=== PATIENT | male | born 1960 | race Caucasian/White ===

== ENCOUNTER 2017-10-06 01:14 | Inpatient (IN) | payer OTHER ==
[~2017-10-06] VITALS: Ht 170.2 cm; Wt 74.8 kg
[~2017-10-06 01:14] MED LIST: ATORVASTATIN CA10 M1; AVAPRO300 M1 PO; HUMALOG100 UNIT/1; MULTIVITAMINS1 EAC9 PO; OXYCODONE HCL5 M1 PO; PROTONIX40 M3 PO; TRESIBA FL100 UNIT/1
--- NOTE | 2017-10-06 13:20 | RADIOLOGY REPORT ---
EXAMINATION: XR LUMBAR SPINE CLINICAL INFORMATION: L3-L4 fusion. COMPARISON: Lumbar spine films dated 07/22/2017. TECHNIQUE: Lateral views of the lumbar spine were performed, labeled image 1 and image 2. FINDINGS: On image 1, a surgical marker is seen projecting over the superior margin of the L4 spinous process at the level of the L3-L4 facet joint. On image 2, a surgical marker is seen projected over the L3-L4 facet joint with tip pointing towards the L3-L4 disc space. IMPRESSION: Localization of the L3-L4 level.
--- NOTE | 2017-10-06 14:46 | Operative Report ---
Operative/Inv Procedure Report Surgery Date: 10/06/17 Name of Procedure: L3/4 TLIF, placement of Doris intervertebral biomechanical device posterior lateral nonsegmental instrumentation using Doris Sirota screws L3 4 posterior lateral fusion using autograft and allograft right sided L3 4 discectomy left-sided L3 4 medial facetectomy foraminotomy Stealth navigation Right iliac crest bone marrow aspirate Pre-Operative Diagnosis: Spondylolisthesis. Herniated nucleus pulposis lateral recess stenosis Post-Operative Diagnosis: Same Estimated Blood Loss: 200 Surgeon/Non Clinical Advisor: Neal Henderson MD,Sandra Palm Anesthesia: general endotracheal tube Operative/Procedure Note Note: After the successful administration of general endotracheal anesthesia all lines tubes and monitors post anesthesia team the patient positioned prone on the Nimesh table pressure points padded we palpated the spinous process of L3 and L4 patient was prepped and draped using standard fashion 10 mL of lidocaine with epinephrine was infiltrated in subcutaneous tissues were 10 was used to incise the skin. Dissection was carried down to thoracolumbar fascia with Bovie cautery and a subperiosteal dissection was used to expose spinous process lamina of L3 and L4 care was taken not to denude to 2/3 joint, we identified the transverse processes of L3 and L4. We then for the pars reticularis at L3 placed a [place] lateral to the pars confirmed level with x-ray, which was confirmed we denuded 3/4 joint space. We then made cuts in the pars meticulous and the right-hand side at L3 and the descending facet of L3 was removed spinous process of L3 with a [place] rongeur saving all the bone for autograft use of bone scalpel to make cuts in the pars and medial facet, The Left-Hand Side at L3 Removing the Descending Facet of L3 We Then Removed Using Cement of L4 with a Combination of Kerrisons and Bone Scalpel. We identified the herniated nuclear pulposus caudally migrated from 34 disc space, medial to the pedicle of L4 underneath the traversing nerve root there was medialized admitted the disc space removed the disc piecemeal sent the specimen. We then used Kerrison punch to undercut the left-sided foramen and identifying the exiting traversing nerve roots and the left-hand side. After satisfied with the bony ligamentous decompression we entered the disc space with a #11 blade from annulotomy and a total discectomy at L3-L4 for a separate approach. Remove the bony cartilage endplates with glo rongeurs and using curettes. After successful and plate prep a 11 x 26 lordotic spacer was impacted into the disc space was prepacked morselized autograft. The autograft was soaked with bone marrow aspirate taken from the right iliac crest through separate stab incision. We then placed the spinous process the right-hand spinous process of L4 brought the O arm in an [employer] workstation plantar screw to points and trajectories. We used a high- speed drill to drill helicopter pilot holes the junction of pars reticularis transverse process and facet complex at L3 and L4 to deepen the navigated lanky probe Was 6.5 mm tap HAD sequential bone around the. We then placed 6 5 x 50 pedicle screws at L3 and L4 after the transverse processes were decorticated and packed morselized autograft soaked with bone marrow aspirate and V toss soaked in bone marrow aspirate. All screws stimulated above threshold with limited confirmatory spin all hardware was in excellent position we placed to precontoured 40 mm rods provided gentle distraction on the right-hand side decompression left-hand side secured the rods in place with set screws and tightened with a torque limiting driver utility worker. The copiously irrigated with bacitracin irrigation obtained hemostasis through separate stab incision a Hemovac was placed the wound was a total vancomycin powder and closed in layers using 0 device the fascia 2-0 Vicryl for deep dermis and skin was closed with dmitriy a dry sterile dressing was applied. At end the case all needle counts sponge and instrument correct the patient was taken to recovery in stable condition.
--- NOTE | 2017-10-06 14:47 | Operative Report ---
Operative/Inv Procedure Report Surgery Date: 10/06/17 Name of Procedure: 1. L3/4 transforaminal lumbar interbody fusion with [place] titanium interbody cage, autograft 2. L3 4 posterior lateral arthrodesis with [place] Richardson screws, autograft, V toss, iliac crest bone marrow aspirate 3. Left L3 4 laminectomy, foraminotomy 4. Right L3 4 discectomy for caudally extruded disc herniation 5. Right iliac crest bone marrow aspirate 6. O arm neuro navigation Pre-Operative Diagnosis: L3 4 spondylolisthesis, stenosis, right caudally extruded herniated nucleus pulposus Post-Operative Diagnosis: Same Estimated Blood Loss: 200cc Surgeon/Business Development Associate: Santiago SIMONS,Neal Gordon M.D. Anesthesia: general endotracheal tube Monitors: Neurophysiologic monitoring IV Fluids: 1.5 L crystalloid Implants: Doris Urine Output: 150 mL via Andrews Drains: Medium Hemovac Specimens: L3 4 disc material Complications: None Condition: Stable Operative Indication: Patient is a 57-year-old gentleman with a degenerative L3 4 grade 1 spondylolisthesis with dynamic instability who presents now with more acute worsening right lumbar radicular symptoms. Updated MRI study now shows a new caudally extruded disc herniation in the right lateral recess extending to the right L4 pedicle with severe impingement of the right L4 root. His family conference of course of conservative treatment and now presents for surgical decompression and instrumented fusion. Operative/Procedure Note Note: Patient was taken to the operating room. After appropriate patient identification and surgical timeout, neurophysiologic monitoring leads were placed and baseline recordings obtained the patient underwent smooth induction of general endotracheal anesthesia without incident. Andrews catheter was sterilely inserted. DVT prophylaxis was utilized throughout the case. Patient given 2 g of IV Kefzol Preoperative Prophylaxis. With All Tubes and Lines Secured he Was Carefully Turned to the Prone Position on the Nimesh Table Taking Care to Ensure That All Pressure Points Were Well-Padded. The Lumbar Region Was Widely Prepped and Draped in Usual Sterile Fashion Using Povidone Solution. A Vertical Midline Skin Incision Was Marked and Infiltrated with Local Anesthetic. Localizing X-Ray Was Obtained with a Small Gauge Spinal Needle Placed Superficially Identifying This at the Level of L4 pedicle. Skin incision was made with a 10 blade knife. A self-retaining retractor was placed. Dissection was carried through the subcutaneous tissue with the Bovie to the lumbodorsal fascia. The fascia was incised in midline and a subperiosteal dissection lumbar paravertebral muscles was performed bilaterally Bovie exposing underlying spinous processes lamina and the facet joints. Facets of L34 were noted to be markedly hypertrophic. A [place] 4 was placed at the presumed L4 pars and intraoperative x-ray was obtained and confirmed the correct localization. We exposed the transverse processes of L3 and L4 bilaterally which were decorticated with a high-speed drill and the lateral gutters packed. . We then focused our attention to the decompression. A L34 laminectomy, right pars osteotomy and facetectomies were performed using the combination of [place] rongeur, bone scalpel, and Kerrisons skeletonizing the pedicles bilaterally and widely decompressing the exiting L4, traversing L5 nerve roots, and midline thecal sac. Focusing on the patient's right side, a total facetectomy was completed and bone was passed off and saved for subsequent arthrodesis. We explored the disc space caudal to the disc space with the thecal sac gently mobilized to the midline. Medial to the right L4 pedicle, an encapsulated caudally extruded disc fragment was appreciated. The capsule was coagulated and incised with an 11 blade knife and multiple fragments of extruded disc material were carefully removed using a microhook and a pituitary rongeur and passed off as specimen. Once the discectomy was extracted from the epidural space, the L4 nerve root was noted to be widely decompressed. A [place] elevator was used to palpate the ventral and dorsal to the root and out the neuroforamen showed it to be widely patent. On the left side, laminectomy and medial facetectomy was performed skeletonizing the medial aspect of the pedicles and ensuring an excellent decompression of the lateral recess. Foraminotomies of the L3 and L4 roots was also accomplished in a [place] elevator could be palpated out the foramen to check them to be patent. Then working from the patient's more symptomatically right side, the thecal sac was gently mobilized to the midline. The underlying disc annulus was identified. A cuff of overlying venous epidural tissue was coagulated and divided. An annulotomy was made with a 11 blade knife and discectomy was performed with straight and angled curettes, disc space glo and rasps until all the cartilaginous endplates were removed. After appropriate trials, a 11 x 28 x 6 Doris tritanium cage was selected. The anterior L3 4 interspace was packed with morcellated autograft and then The cage was packed with morcellated autograft from the decompression and gently tamped into the interspace under direct guidance. Cage was countersunk. 20 mL of right iliac crest bone marrow aspirate was then obtained through a separate stab incision using a Jamshidi needle. This was added to the morcellated autograft. Autograft was then packed over the transverse processes from L3 to L4 bilaterally and further compressed with 5 mL of V toss with iliac crest bone marrow aspirate on both sides. Once the cage was in position, we proceeded with placement of the pedicle screw instrumentation. The O arm was brought into the field. AP and lateral reference x-rays and a spin of the O arm was then obtained. Using O arm navigation, pedicle screws were then placed at L3 and L4 bilaterally. Entry points were selected at the junction of the pars transverse process and inferolateral lateral aspect of the rostral facet and confirmed with the O arm. The pedicles were traversed with a gearshift. The holes were sounded with a ball-tipped probe, tapped, resounded and screws placed. At L3, 6.5 x 50 mm screws were placed bilaterally. On placement of the right L3 screw, a hairline fracture of the inferior pedicle at the level of the foramen was encountered. A [place] was used to palpate out the neural foramen and the exiting L3 root was widely decompressed. At L4, 6.5 x 50 mm screws were also placed bilaterally. Once all screws were in position they were stimulated with thresholds greater than 30 mA at all 4 locations. A second spin of the O arm was obtained and confirmed excellent position of the interbody cage and pedicle screw and jerry instrumentation and the right L3 pedicle was intact with excellent screw position. 40 mm rods were then top loaded into the screws and locking caps placed. Gentle compression was placed across the interspace on the left and slight distraction on the right to account for his focal scoliotic curve and the screws were finally tightened with an antitorque device. Hemostasis is achieved using a bipolar, FloSeal, thrombin-soaked Gelfoam. The wound was copiously irrigated with sterile saline bacitracin irrigation. 1 g of IV vancomycin powder was placed in the wound on the cut muscle and soft tissue surfaces. A medium Hemovac drain was placed into the wound and secured to the skin with a 2-0 nylon suture. Monitoring was stable and we began wound closure. Deep muscle was reapproximated interrupted 0 Vicryl suture the lumbodorsal fascia was reapproximated interrupted 0 Vicryl suture. Subcutaneous tissue was copiously irrigated and closed with interrupted 2-0 Vicryl suture and the skin was closed with dmitriy. Wounds clean and dried. Bacitracin and a sterile occlusive dressing was placed. Patient was returned to the supine position, awakened extubated and taken to PACU in stable condition. he was noted to be moving all 4 extremities at the completion of the case. All sponge, needle, and injuring counts are correct at the completion of the procedure 3. Neurophysiologic monitoring was stable throughout the case. Findings: Large caudally extruded right L3 4 herniated nucleus pulposus with impingement of the right L4 root, advanced L3 4 facet arthrosis, instability, degenerative disc disease with stenosis Discharge Disposition: PACU
--- NOTE | 2017-10-06 15:08 | RADIOLOGY REPORT ---
EXAMINATION: CR LUMBAR SPINE/INTRAOPERATIVE FLUOROSCOPY CLINICAL INDICATION: TLIF L3-L4 COMPARISON: Lumbar spine studies from earlier today and 07/22/2017. TECHNIQUE/FINDINGS: Fluoroscopic o-arm equipment was dedicated to the operating room for the performance of an intraoperative procedure, the alignment of L3-L4. Two o-arm runs were acquired and are archived in PACS. Please refer to operative notes for procedural detail. FLUOROSCOPY TIME: 5.94 seconds. IMPRESSION: Administrative dictation for intraoperative fluoroscopy and image archiving in PACS. Please refer to operative notes for details.
[2017-10-06 16:30] VITALS: BP 128/68
--- NOTE | 2017-10-06 17:14 | PN- Neurosurgical ---
Subjective Subjective: POST-OP NOTE Reports expected lower back pain, which feels better when his knees are bent. Slight nausea. Not yet out of bed. No dizziness. No shortness of breath. No chest pains. Objective Vital Signs and I&Os flowsheet reviewed Physical Exam: General - alert & oriented x 3. comfortable. no acute distress. Lungs - clear bilaterally. no w/r/r. Cardiac - s1s2. reg. Abdomen - soft. nontender. Back - dressing c/d/i. hemovac with scant drainage - olsen draining clear yellow urine. Extremities - warm bilaterally. no c/c/e. calves soft and nontender b/l. df/pf 5 /5 b/l. strong knee extension b/l. athrombics in place b/l. sensation grossly equal b/l lower legs. Current Medications: Current Medications Sig/Cyndee Start time Last Medication Dose Route Stop Time Status Admin Acetaminophen 1,000 MG Q6H 10/06 1700 UNVr N/A 1 UNIT IV 10/07 1114 Acetaminophen 650 MG Q4P PRN 10/06 1600 AC PO Bisacodyl 10 MG DAILY PRN 10/[address] Cefazolin Sodium 2 GM IQ8 10/06 1600 AC N/A 1 UNIT IV 10/08 0029 Cefazolin Sodium 2,000 MG ONE 10/06 0000 NR IV 10/06 2359 Diazepam 5 MG Q8P PRN 10/06 1615 AC PO Docusate Sodium 100 MG BID 10/06 2100 AC PO Famotidine 20 MG BID 10/06 2100 AC PO Heparin Sodium 5,000 UNIT Q8 10/07 0600 AC (Porcine) SC Hydromorphone HCl 2 MG Q4-6 PRN PRN 10/07 0800 DC PO Hydromorphone HCl 4 MG Q4-6 PRN PRN 10/07 0800 UNVr PO Hydromorphone HCl 2 MG Q4-6 PRN PRN 10/06 1700 UNVr PO Hydromorphone HCl 50 MG Q24H PRN 10/06 1500 r Sodium Chloride 45 ML IV Ketorolac 15 MG Q6P PRN 10/07 0800 r Tromethamine IV Ketorolac 30 MG ONCE ONE 10/06 1540 DC Tromethamine IV 10/06 1541 Morphine Sulfate 0 .STK-MED ONE 10/06 1017 DC .ROUTE Ondansetron HCl 4 MG Q6P PRN 10/06 1615 AC IV Ondansetron HCl 0 .STK-MED ONE 10/06 1018 DC .ROUTE Oxycodone/ 2 TAB Q4P PRN 10/07 0800 CAN Acetaminophen PO Senna 374 MG AT BEDTIME NEED.. 10/06 1600 AC PO Sodium Chloride 1,000 ML Q10H 10/06 1600 AC IV 10/07 1159 Trimethobenzamide HCl 200 MG Q6P PRN 10/06 1615 AC IM Zolpidem Tartrate 2.5 MG AT BEDTIME NEED.. 10/06 1600 AC PO Assessment/Plan Assessment/Plan This 57 year old male with hx gerd, dm, hld, chronic pain, osteoarthritis, is POD#0 s/p L3/4 TLIF with [place] titanium interbody cage, L3-4 posterior lateral arthrodesis with [place] Richardson screws, autograft, V toss, iliac crest bone marrow aspirate, Left L3-4 laminectomy and foraminotomy, right L3-4 discectomy for caudally extruded disc herniation, and right iliac crest bone marrow aspirate for pre-operative diagnosis of L3-4 spondylolisthesis, stenosis, right caudally extruded herniated nucleus pulposus advance diet as tolerated iv tylenol around the clock iv toradol 15mg q6prn pain pneumatic tube repairer - dilaudid, demand increased to 0.2mg q6min without basal rate monitor hemovac drain iv ancef until the drain is removed hep sc to start in the morning called for aspen contour brace, to be used when out of bed IST will d/w Core Measures Venous Thromboembolism VTE Risk Factors Surgery No Mechanical VTE Prophylaxis d/t N/A MechProphylax Ordered No VTE Pharm Prophylaxis d/t NA PharmProphylax ordered
[2017-10-06 18:30] VITALS: BP 122/60
[2017-10-06 19:39] VITALS: BP 120/60
[2017-10-06 20:30] VITALS: BP 120/60
[2017-10-06 22:30] VITALS: BP 139/69
[2017-10-06 22:36] VITALS: BP 139/69
[2017-10-07] VITALS (12 sets, daily range): BP systolic 102–144; BP diastolic 52–72
--- NOTE | 2017-10-07 10:55 | PN- Neurosurgical ---
Subjective Subjective: pt in bed, pain controlled with UNION STEWARD. denies paresthesias. tolerating PO, is worried oral pain meds will make him nauseous. due to void since olsen was removed this am Ambulating, back brace was delivered this am Objective Vital Signs and I&Os Vital Signs Date Time Temp Pulse Resp B/P B/P Pulse O2 O2 Flow FiO2 Mean Ox Delivery Rate 10/07 0722 98.5 68 20 127/72 99 Room Air 10/07 0600 100 Room Air 10/07 0500 97.9 67 20 133/68 10/07 0259 97.9 67 20 133/68 100 Room Air 10/07 0230 97.9 67 20 133/68 10/07 0031 98.1 68 18 138/71 99 Room Air 10/07 0030 98.1 68 99 138/71 10/06 2236 98.4 71 18 139/69 97 Room Air 10/06 2230 98.4 71 18 139/69 10/06 2200 98 Room Air 10/06 2030 98.2 83 20 120/60 10/06 2018 Room Air 10/06 1939 98.2 83 20 120/60 99 Room Air 10/06 1830 98.4 82 18 122/60 10/06 1630 98.9 78 18 128/68 10/06 1630 96 Nasal Cannula 10/06 1630 98.9 78 18 128/68 98 Room Air Intake & Output 10/07 1600 10/07 0800 10/07 0000 10/06 1600 10/06 0800 10/06 0000 Intake Total 1560 Output Total 370 350 Balance 1190 -350 Intake, IV 1080 Intake, Oral 480 Number 0 Bowel Movements Output, 120 Drainage Output, Urine 250 350 Patient 165 lb Weight Weight Standing Scale Measurement Method Physical Exam: gen- NAD resp- clear cardiac-RRR abd- soft, NT dressing cle[place] nd dry- hemovac in place with sang, drainage in canister ext- distal sensory and motor function intact drain output- 120cc/8h Current Medications: Current Medications Sig/Cyndee Start time Last Medication Dose Route Stop Time Status Admin Acetaminophen 1,000 MG Q6H 10/06 1700 AC 10/07 N/A 1 UNIT IV 10/07 1114 0533 Acetaminophen 650 MG Q4P PRN 10/06 1600 AC PO Bisacodyl 10 MG DAILY PRN 10/06 1615 AC MI Cefazolin Sodium 2 GM IQ8 10/06 1600 AC 10/07 N/A 1 UNIT IV 10/08 0029 0830 Cefazolin Sodium 2,000 MG ONE 10/06 0000 DC IV 10/06 2359 Chlorpromazine 50 MG ONCE ONE 10/07 0530 DC 10/07 IV 10/07 0531 0605 Diazepam 5 MG Q8P PRN 10/06 1615 AC 10/07 PO 0214 Docusate Sodium 100 MG BID 10/06 2100 AC 10/07 PO 0830 Famotidine 20 MG BID 10/06 2100 AC 10/07 PO 0829 Heparin Sodium 5,000 UNIT Q8 10/07 0600 AC 10/07 (Porcine) SC 0532 Hydromorphone HCl 2 MG Q4-6 PRN PRN 10/07 0800 DC PO Hydromorphone HCl 4 MG Q4-6 PRN PRN 10/07 0800 AC PO Hydromorphone HCl 2 MG Q4-6 PRN PRN 10/06 1700 AC PO Hydromorphone HCl 50 MG Q24H PRN 10/06 1500 DC Sodium Chloride 45 ML IV Insulin Aspart 0 TIDAC 10/07 0800 AC SC Insulin Detemir 30 UNITS QPM 10/06 2100 AC 10/06 SC 2132 Insulin Human Regular 0 TIDAC/HS 10/06 2100 DC 10/06 SC 1900 Ketorolac 15 MG Q6P PRN 10/07 0800 AC Tromethamine IV Ketorolac 15 MG ONCE ONE 10/07 0015 DC 10/07 Tromethamine IV 10/07 0016 0038 Ketorolac 30 MG ONCE ONE 10/06 1540 DC 10/06 Tromethamine IV 10/06 1541 1737 Midazolam HCl 2 MG .STK-MED ONE 10/06 1528 DC IM 10/06 1529 Morphine Sulfate 8 MG .STK-MED ONE 10/06 1508 DC IM 10/06 1509 Morphine Sulfate 4 MG .STK-MED ONE 10/06 1459 DC IM 10/06 1500 Ondansetron HCl 4 MG Q6P PRN 10/06 1615 AC 10/07 IV 0001 Oxycodone/ 2 TAB Q4P PRN 10/07 0800 CAN Acetaminophen PO Senna 374 MG AT BEDTIME NEED.. 10/06 1600 AC PO Sodium Chloride 1,000 ML Q10H 10/06 1600 AC 10/07 IV 10/07 1159 0214 Trimethobenzamide HCl 200 MG Q6P PRN 10/06 1615 AC 10/07 IM 0411 Zolpidem Tartrate 2.5 MG AT BEDTIME NEED.. 10/06 1600 AC PO Assessment/Plan Assessment/Plan 57yo M SP TLIF POD1. stable. due to void DC UNION STEWARD, switch to oral pain meds hemovac to stay in for now until output <50cc/8h cont abx until drain is out reg diet PT reg home meds OOB w brace Core Measures Venous Thromboembolism VTE Risk Factors Surgery No Mechanical VTE Prophylaxis d/t N/A MechProphylax Ordered No VTE Pharm Prophylaxis d/t NA PharmProphylax ordered
--- NOTE | 2017-10-07 13:25 | PN- Neurosurgical ---
Subjective Subjective: Pt seen this am and doing well. Incisional LBP very well controlled with ETHOLOGIST over night per pt. Denies right leg pain or any neurologic issues in LE. Objective Vital Signs and I&Os Vital Signs Date Time Temp Pulse Resp B/P B/P Pulse O2 O2 Flow FiO2 Mean Ox Delivery Rate 10/07 0800 98.5 68 20 127/72 10/07 0722 98.5 68 20 127/72 99 Room Air 10/07 0600 100 Room Air 10/07 0500 97.9 67 20 133/68 10/07 0259 97.9 67 20 133/68 100 Room Air 10/07 0230 97.9 67 20 133/68 10/07 0031 98.1 68 18 138/71 99 Room Air 10/07 0030 98.1 68 99 138/71 10/06 2236 98.4 71 18 139/69 97 Room Air 10/06 2230 98.4 71 18 139/69 10/06 2200 98 Room Air 10/06 2030 98.2 83 20 120/60 10/06 2018 Room Air 10/06 1939 98.2 83 20 120/60 99 Room Air 10/06 1830 98.4 82 18 122/60 10/06 1630 98.9 78 18 128/68 10/06 1630 96 Nasal Cannula 10/06 1630 98.9 78 18 128/68 98 Room Air Intake & Output 10/07 1600 10/07 0800 10/07 0000 10/06 1600 10/06 0800 10/06 0000 Intake Total 1560 Output Total 370 350 Balance 1190 -350 Intake, IV 1080 Intake, Oral 480 Number 0 Bowel Movements Output, 120 Drainage Output, Urine 250 350 Patient 74.843 kg Weight Weight Standing Scale Measurement Method Physical Exam: AF, VSS BG 195 last checked, under 100 prior awake and alert, mouth dry normal motor and sensory exam bilat LE, no edema incision with min serosanguinous stain on bandage HV with 120cc out last shift using IS with good effort Current Medications: Current Medications Sig/Cyndee Start time Last Medication Dose Route Stop Time Status Admin Acetaminophen 1,000 MG Q6H 10/06 1700 DC 10/07 N/A 1 UNIT IV 10/07 1114 1130 Acetaminophen 650 MG Q4P PRN 10/06 1600 AC PO Bisacodyl 10 MG DAILY PRN 10/06 1615 AC OH Cefazolin Sodium 2 GM IQ8 10/06 1600 AC 10/07 N/A 1 UNIT IV 10/08 0029 0830 Cefazolin Sodium 2,000 MG ONE 10/06 0000 DC IV 10/06 2359 Chlorpromazine 50 MG ONCE ONE 10/07 0530 DC 10/07 IV 10/07 0531 0605 Diazepam 5 MG Q8P PRN 10/06 1615 AC 10/07 PO 0214 Docusate Sodium 100 MG BID 10/06 2100 AC 10/07 PO 0830 Famotidine 20 MG BID 10/06 2100 AC 10/07 PO 0829 Heparin Sodium 5,000 UNIT Q8 10/07 0600 AC 10/07 (Porcine) SC 1309 Hydromorphone HCl 2 MG Q4-6 PRN PRN 10/07 0800 DC PO Hydromorphone HCl 4 MG Q4-6 PRN PRN 10/07 0800 AC 10/07 PO 1304 Hydromorphone HCl 2 MG Q4-6 PRN PRN 10/06 1700 AC PO Hydromorphone HCl 50 MG Q24H PRN 10/06 1500 DC Sodium Chloride 45 ML IV Insulin Aspart 0 TIDAC 10/07 0800 AC 10/07 SC 1230 Insulin Detemir 30 UNITS QPM 10/06 2100 AC 10/06 SC 2132 Insulin Human Regular 0 TIDAC/HS 10/06 2100 DC 10/06 SC 1900 Ketorolac 15 MG Q6P PRN 10/07 0800 AC Tromethamine IV Ketorolac 15 MG ONCE ONE 10/07 0015 DC 10/07 Tromethamine IV 10/07 0016 0038 Ketorolac 30 MG ONCE ONE 10/06 1540 DC 10/06 Tromethamine IV 10/06 1541 1737 Midazolam HCl 2 MG .STK-MED ONE 10/06 1528 DC IM 10/06 1529 Morphine Sulfate 8 MG .STK-MED ONE 10/06 1508 DC IM 10/06 1509 Morphine Sulfate 4 MG .STK-MED ONE 10/06 1459 DC IM 10/06 1500 Ondansetron HCl 4 MG Q6P PRN 10/06 1615 AC 10/07 IV 1312 Oxycodone/ 2 TAB Q4P PRN 10/07 0800 CAN Acetaminophen PO Senna 374 MG AT BEDTIME NEED.. 10/06 1600 AC PO Sodium Chloride 1,000 ML Q10H 10/06 1600 DC 10/07 IV 10/07 1159 0214 Trimethobenzamide HCl 200 MG Q6P PRN 10/06 1615 AC 10/07 IM 0411 Zolpidem Tartrate 2.5 MG AT BEDTIME NEED.. 10/06 1600 AC PO Assessment/Plan Assessment/Plan Pt POD1 s/p L3/4 discectomy, TLIF and decompression and doing well. Neurologically intact with improved RLE pain. Plan: -[facility]pen contour LSO or equivalent -mointor BG given h/o DM closely, ISS prn -adat, HLIV -PT -DVT prophylaxis -IS use 10x/hr -cont HV until less than 50cc per shift, abx until drain out -D/C ETHOLOGIST, start po dilaudid prn Core Measures Venous Thromboembolism VTE Risk Factors Surgery No Mechanical VTE Prophylaxis d/t N/A MechProphylax Ordered No VTE Pharm Prophylaxis d/t NA PharmProphylax ordered Attending MD Review Statement Attending Statement Attending MD Statement: examined this patient, discuss w/resident/PA/EMPLOYMENT ADJUDICATOR, discussed w/nursing
[2017-10-08] VITALS (7 sets, daily range): BP systolic 98–144; BP diastolic 59–80
--- NOTE | 2017-10-08 07:41 | PN- Orthopedic ---
Subjective Review of Systems: NO FEVERS OR CHILLS Review of Systems Constitutional: Denies: chills, diaphoresis, fever, weakness. Cardiovascular: Denies: chest pain. Respiratory: Denies: cough, short of breath. Objective Vital Signs and I&Os Vital Signs Date Time Temp Pulse Resp B/P B/P Pulse O2 O2 Flow FiO2 Mean Ox Delivery Rate 10/08 0600 95 Room Air 10/08 0428 97.9 79 20 144/70 95 10/08 0010 98.4 83 20 140/62 95 10/07 2200 92 Room Air 10/07 2138 98.5 83 16 102/52 92 Room Air 10/07 2000 98.7 81 18 122/55 93 Room Air 10/07 1606 98.8 80 20 102/52 96 Room Air 10/07 1400 97 Room Air 10/07 1200 98.3 76 20 144/68 97 Room Air 10/07 1100 98.3 76 20 144/68 10/07 0800 98.5 68 20 127/72 Intake & Output 10/08 0810/08 0000 10/07 1600 10/07 0800 10/07 0000 10/06 1600 Intake Total 508 878 1667 1560 Output Total 600 1300 380 370 350 Balance -120 -737 166 0288 -350 Intake, IV 600 1080 Intake, Oral 480 400 740 480 Number 0 0 Bowel Movements Output, 5 120 Drainage Output, Urine 600 1300 375 250 350 Patient 165 lb Weight Weight Standing Scale Measurement Method Assessment/Plan Assessment/Plan A/P Core Measures Venous Thromboembolism VTE Risk Factors Surgery No Mechanical VTE Prophylaxis d/t N/A MechProphylax Ordered No VTE Pharm Prophylaxis d/t NA PharmProphylax ordered No Mechanical VTE Prophylaxis d/t N/A MechProphylax Ordered No VTE Pharm Prophylaxis d/t NA PharmProphylax ordered No Mechanical VTE Prophylaxis d/t N/A MechProphylax Ordered No VTE Pharm Prophylaxis d/t NA PharmProphylax ordered
--- NOTE | 2017-10-08 12:09 | PN- Neurosurgical ---
Subjective Subjective: Pt doing very well. No complaints this am. Objective Vital Signs and I&Os Vital Signs Date Time Temp Pulse Resp B/P B/P Pulse O2 O2 Flow FiO2 Mean Ox Delivery Rate 10/08 0600 95 Room Air 10/08 0428 97.9 79 20 144/70 95 10/08 0010 98.4 83 20 140/62 95 10/07 2200 92 Room Air 10/07 2138 98.5 83 16 102/52 92 Room Air 10/07 2000 98.7 81 18 122/55 93 Room Air 10/07 1606 98.8 80 20 102/52 96 Room Air 10/07 1400 97 Room Air 10/07 1200 98.3 76 20 144/68 97 Room Air 10/07 1100 98.3 76 20 144/68 Intake & Output 10/08 1600 10/08 0800 10/08 0000 10/07 1600 10/07 0800 10/07 0000 Intake Total 848 949 4321 1560 Output Total 600 1300 380 370 350 Balance -120 -225 936 6489 -350 Intake, IV 600 1080 Intake, Oral 480 400 740 480 Number 0 0 Bowel Movements Output, 5 120 Drainage Output, Urine 600 1300 375 250 350 Patient 74.843 kg Weight Weight Standing Scale Measurement Method Physical Exam: AF, VSS drain dc'd last mandi incision c,d,i neuro exam normal bilat LE, no right leg discomfort since op ambulating, voiding on own, blaire po blood glucose sl labile [id number] Current Medications: Current Medications Sig/Cyndee Start time Last Medication Dose Route Stop Time Status Admin Acetaminophen 1,000 MG Q6H 10/06 1700 DC 10/07 N/A 1 UNIT IV 10/07 1114 1130 Acetaminophen 650 MG Q4P PRN 10/06 1600 AC PO Bisacodyl 10 MG DAILY PRN 10/06 1615 AC AZ Cefazolin Sodium 2 GM IQ8 10/06 1600 DC 10/07 N/A 1 UNIT IV 10/08 0029 0830 Diazepam 5 MG Q8P PRN 10/06 1615 AC 10/07 PO 0214 Docusate Sodium 100 MG BID 10/06 2100 AC 10/08 PO 0806 Famotidine 20 MG BID 10/06 2100 AC 10/08 PO 0806 Heparin Sodium 5,000 UNIT Q8 10/07 0600 AC 10/07 (Porcine) SC 2124 Hydromorphone HCl 4 MG Q4-6 PRN PRN 10/07 0800 AC 10/08 PO 0809 Hydromorphone HCl 2 MG Q4-6 PRN PRN 10/06 1700 AC PO Hydromorphone HCl 50 MG Q24H PRN 10/06 1500 DC Sodium Chloride 45 ML IV Insulin Aspart 0 TIDAC 10/07 0800 AC 10/07 SC 1649 Insulin Detemir 30 UNITS QPM 10/06 2100 AC 10/07 SC 2124 Ketorolac 15 MG Q6P PRN 10/07 0800 AC 10/07 Tromethamine IV 2325 Ondansetron HCl 4 MG Q6P PRN 10/06 1615 AC 10/08 IV 0504 Patient Medication 1 ED ONE ONE 10/07 1700 DC Teaching ED 10/07 1701 Senna 374 MG AT BEDTIME NEED.. 10/06 1600 AC PO Sodium Chloride 1,000 ML Q10H 10/06 1600 DC 10/07 IV 10/07 1159 0214 Trimethobenzamide HCl 200 MG .STK-MED ONE 10/07 1653 DC IM 10/07 1654 Trimethobenzamide HCl 200 MG Q6P PRN 10/06 1615 AC 10/07 IM 1655 Zolpidem Tartrate 2.5 MG AT BEDTIME NEED.. 10/06 1600 AC 10/07 PO 2325 Assessment/Plan Assessment/Plan Pt POD2 s/p L3/4 TLIF and doing well. Neurologically intact. Plan: -cont to moblilize -possibly home later today if stable with valium/percocet prn -fu with me 2 weeks -dc instructions discussed in detail. -brace when oob, cover incision for showers Core Measures Venous Thromboembolism VTE Risk Factors Surgery No Mechanical VTE Prophylaxis d/t N/A MechProphylax Ordered No VTE Pharm Prophylaxis d/t NA PharmProphylax ordered Attending MD Review Statement Attending Statement Attending MD Statement: examined this patient, discuss w/resident/PA/LIVE IN HOUSEKEEPER, discussed w/nursing
[2017-10-08] MEDS ORDERED: DILAUDID2 M1 PO ×2 (15:52→15:53)
[2017-10-08] MEDS ORDERED: GABAPENTIN600 M1 PO (17:37)
[2017-10-08] MEDS ORDERED: VALIUM5 M2 PO (17:37)
--- NOTE | 2017-10-08 17:46 | Patient Discharge Instructions ---
Discharge Instructions General Discharge Information You were seen/treated for: Low back pain related to L3-4 spondylolisthesis, stenosis and hnp You had these procedures: TLIF L3/4 Watch for these problems: Increasing pain despite the use of pain medications. Increasing redness, warmth and swelling to incision Drainage of any type from incision Inability to bear weight on bilateral lower extremities Loss of sensation to bilateral lower extremities Inability to urinate or move bowels Fever greater than 101 Do not soak the wound: Yes No bath, but you may shower: Yes Other wound care: Keep wound clean and dry. No ointmentsor lotions of any type on or near incision. Diet Continue normal diet: Yes Recommended Diet: Diabetic Activity Full Activity/No Limits: No Activity Self Limited: Yes Pounds, do NOT lift more than: 5 Activity Limited to: Weight bear as tolerated Additional ACTIVITY Info: back brace when out of bed Acute Coronary Syndrome Inclusion Criteria At DC or during hospital stay patient has or had the following: ACS DIAGNOSIS No Discharge Core Measures Meds if any: Prescribed or Continued at Discharge Meds if any: NOT Prescribed or Continued at Discharge Congestive Heart Failure Inclusion Criteria At DC or during hospital stay patient has or had the following: CHF DIAGNOSIS No Discharge Core Measures Meds if any: Prescribed or Continued at Discharge Meds if any: NOT Prescribed or Continued at Discharge Cerebrovascular accident Inclusion Criteria At DC or during hospital stay patient has or had the following: CVA/TIA Diagnosis No Discharge Core Measures Meds if any: Prescribed or Continued at Discharge Meds if any: NOT Prescribed or Continued at Discharge Venous thromboembolism Inclusion Criteria VTE Diagnosis No VTE Type NONE VTE Confirmed by (Test) NONE Discharge Core Measures - Per Current guidelines, there needs to be overlap - treatment for the first 5 days of Warfarin therapy. - If discharged on Warfarin prior to 5 days of - overlap therapy, the patient will need to be - assessed for post discharge needs including - *Post discharge parental anticoagulation - *Warfarin and/or parental anticoagulation education - *Follow up date to check INR post discharge At least 5 days overlap therapy as Inpatient No Meds if any: Prescribed or Continued at Discharge Note: Overlap Therapy is Warfarin and Anticoagulant Meds if any: NOT Prescribed or Continued at Discharge
--- NOTE | 2017-10-08 17:49 | Surgical Discharge Summary ---
Visit Information Visit Dates Admission Date: 10/06/17 Discharge Date: 10/09/2017 History of Present Illness Chief Complaint: Low back pain related to L3/4 spondylolisthesis, hnp, and stenosis Medical History Blood Transfusion Hx: No Neurological: NONE EENT: NONE Cardiovascular: hyperlipidemia Respiratory: NONE Gastrointestinal: GERD Hepatic: NONE Renal: NONE Musculoskeletal: degen joint disease, osteoarthritis Psychiatric: NONE Endocrine: diabetes Blood Disorders: NONE Cancer(s): NONE CHART WRITER/Reproductive: NONE History of MRSA: No History of VRE: No History of CDIFF: No Isolation History: Standard Influenza Vaccine: 03/15/17 Surgical History Pertinent Surgical History: BILATERAL SHOULDER DECOMP Psychosocial History Where Do You Live? Home Who Do You Live With? Family What is Your Primary Language? Slovak Review of Systems: See H&P Hospital Course Course Attending Physician: Santiago SIMONS,Sandra Palm Primary Care Physician: Robinson SIMONS,Karlo Murphy Hospital Course: Karlo was admitted to the hospital on 10/06/2017 for a TLIF of levels L3/4. He tolerated the procedure well and was transferred to a general surgical floor. His diet was advanced and tolerated. He ambulated with physical therapy. His vital signs remained stable and within normal limits. He voided spontaneously and urine output was adequate. On post op day 3 he was deemed appropriate for discharge to home with home health services. Allergies: Coded Allergies: No Known Allergies (10/02/17) Disposition Summary Disposition Principal Diagnosis: L 3/4 spondylolisthesis, stenosis, and hnp Additional Diagnosis: none Discharge Disposition: home health services Discharge Instructions General Discharge Information Code Status: Full Code Patient's Diet: Diabetic, advance as tolerated Patient's Activity: as tolerated Follow-Up Instructions/Appts: with Dr. Henderson in 2 weeks Medications at Discharge Discharge Medications: Stop taking the following medications: Oxycodone HCl (Oxycodone HCl) 5 MG TABLET ORAL 4 times daily as needed Continue taking these medications: Insulin Lispro (Humalog) 100 UNIT/ML CARTRIDGE Insulin Degludec (Tresiba Flextouch U-100) 100 UNIT/ML (3 ML) INSULN.PEN 25 Units DAILY Multiple Vitamin (Multivitamins) 1 EACH TABLET 1 Tablet ORAL DAILY Pantoprazole Sodium (Protonix) 40 MG TABLET.DR 1 Tablet ORAL DAILY Atorvastatin Calcium (Atorvastatin Calcium) 10 MG TABLET 0.5 Tablet DAILY Irbesartan (Avapro) 300 MG TABLET 1 Tablet ORAL DAILY Start taking the following new medications: Hydromorphone HCl (Dilaudid) 2 MG TABLET 1-2 Tablet ORAL EVERY 4-6 HOURS NEEDED as needed for PAIN Qty = 36 No Refills Diazepam (Valium) 5 MG TABLET 1 Tablet ORAL THREE TIMES A DAY NEEDED Qty = 9 No Refills Instructions: . Gabapentin (Gabapentin) 300 MG CAPSULE 1 Capsule ORAL TWICE DAILY Qty = 60 No Refills
[2017-10-08] MEDS ORDERED: GABAPENTIN300 M2 PO (20:07)
[2017-10-09 06:30] VITALS: BP 122/59
--- NOTE | 2017-10-09 07:35 | PN- Neurosurgical ---
Subjective Subjective: Pt doing well this am although admits to severe anxiety during the night, now resolved. Pain controlled. Dizzyness better this am. Objective Vital Signs and I&Os Vital Signs Date Time Temp Pulse Resp B/P B/P Pulse O2 O2 Flow FiO2 Mean Ox Delivery Rate 10/09 0600 95 Room Air 10/08 2234 98.3 82 20 128/59 92 Room Air 10/08 2210 82 128/58 10/08 2200 97 Room Air 10/08 1649 97.1 75 18 142/74 100 Room Air 10/08 1429 99.7 80 18 128/80 95 Room Air 10/08 1400 97 Room Air 10/08 0800 98.4 79 18 126/64 97 Room Air Intake & Output 10/09 0810/09 0000 10/08 1600 10/08 0800 10/08 0000 10/07 1600 Intake Total 240 480 740 777 845 9461 Output Total 400 450 817 249 0381 380 Balance -160 30 -10 -120 -900 960 Intake, IV 600 Intake, Oral 240 480 740 480 400 740 Number 0 0 Bowel Movements Output, 5 Drainage Output, Urine 400 450 359 592 9093 375 Physical Exam: AF, VSS awake and alert, at bedside neuro exam is normal bilat LE, incision with min stain on dressing, otherwise c, d,i mild swelling paralumbar muscles ambulating independently, blaire po, voiding on own Current Medications: Current Medications Sig/Cyndee Start time Last Medication Dose Route Stop Time Status Admin Acetaminophen 650 MG .STK-MED ONE 10/08 195 DC PO 10/08 195 Acetaminophen 650 MG .STK-MED ONE 10/08 1127 DC PO 10/08 1128 Acetaminophen 650 MG Q4P PRN 10/06 1600 AC 10/08 PO 2004 Bisacodyl 10 MG DAILY PRN 10/06 1615 AC GA Diazepam 5 MG Q8P PRN 10/06 1615 AC 10/08 PO 2120 Docusate Sodium 100 MG BID 10/06 2100 AC 10/08 PO 2004 Famotidine 20 MG BID 10/06 2100 AC 10/08 PO 2004 Gabapentin 600 MG Q8 10/09 0600 CAN PO Gabapentin 300 MG BID 10/08 2100 AC 10/08 PO 2210 Gabapentin 300 MG Q8 10/08 1731 DC PO 10/08 2200 Heparin Sodium 5,000 UNIT Q8 10/07 0600 AC 10/07 (Porcine) SC 2124 Hydromorphone HCl 4 MG Q4-6 PRN PRN 10/07 0800 AC 10/09 PO 0632 Hydromorphone HCl 2 MG Q4-6 PRN PRN 10/06 1700 AC PO Insulin Aspart 0 TIDAC 10/07 0800 AC 10/08 SC 171 Insulin Detemir 30 UNITS QPM 10/06 2100 AC 10/08 SC 2005 Ketorolac 15 MG Q6P PRN 10/07 0800 AC 10/07 Tromethamine IV 2325 Losartan Potassium 100 MG DAILY 10/08 1733 AC 10/08 PO 2210 Omeprazole 40 MG DAILY AC 10/08 1733 AC 10/09 PO 0458 Ondansetron HCl 4 MG .STK-MED ONE 10/08 1016 DC IM 10/08 1017 Ondansetron HCl 4 MG Q6P PRN 10/06 1615 AC 10/08 IV 1019 Patient Medication 1 ED ONE ONE 10/08 1100 DC 10/08 Teaching ED 10/08 1101 1128 Senna 374 MG AT BEDTIME NEED.. 10/06 1600 AC 10/08 PO 2004 Trimethobenzamide HCl 200 MG Q6P PRN 10/06 1615 AC 10/07 IM 1655 Zolpidem Tartrate 2.5 MG AT BEDTIME NEED.. 10/06 1600 AC 10/07 PO 2325 Assessment/Plan Assessment/Plan Pt POD3 s/p L3/4 TLIF and doing well this am. Neurologically intact. Dizzyness improved - likely medication related. Plan: -dc home today -brace when oob -percocet, valium prn for discharge, neurontin 300bid -dc instructions reviewed again with pt and -fu with me 2 weeks Core Measures Venous Thromboembolism VTE Risk Factors Surgery No Mechanical VTE Prophylaxis d/t N/A MechProphylax Ordered No VTE Pharm Prophylaxis d/t NA PharmProphylax ordered Attending MD Review Statement Attending Statement Attending MD Statement: examined this patient, discuss w/resident/PA/ARCHAEOLOGIST, discussed w/nursing
[2017-10-09] MEDS ORDERED: VALIUM5 M2 PO ×2 (08:12→08:58)
[2017-10-09 10:04] VITALS: BP 112/62
== END 2017-10-09 11:33 | disposition home health service (06) | DRG 460 ==
LOC: SDA 01:14 → ENRESERV 14:57 → ENTRNSPT 16:23 → 2NB 16:39 → CMPTRNSPT 16:44 → ENPENDDIS 10-09 09:11 → ENTRNSPT 10-09 11:23 → EDTRNSPTSTS 10-09 11:27 → EDTRNSPT 10-09 11:27 → 2NB 10-09 11:33 → CMPTRNSPT 10-09 11:41
PROC: 01NB0ZZ Release Lumbar Nerve, Open Approach (ICD-10-PCS; principal; 2017-10-06)
PROC: 0SG00AJ Fusion of Lumbar Vertebral Joint with Interbody Fusion Device, Posterior Approach, Anterior Column, Open Approach (ICD-10-PCS; principal; 2017-10-06)
PROC: 07DR3ZX Extraction of Iliac Bone Marrow, Percutaneous Approach, Diagnostic (ICD-10-PCS; principal; 2017-10-06)
PROC: 0SB20ZZ Excision of Lumbar Vertebral Disc, Open Approach (ICD-10-PCS; principal; 2017-10-06)
DX: M43.16 Spondylolisthesis, lumbar region (principal); E11.9 Type 2 diabetes mellitus without complications; E78.5 Hyperlipidemia, unspecified; K21.9 Gastro-esophageal reflux disease without esophagitis; M51.26 Other intervertebral disc displacement, lumbar region
CPT/HCPCS: 2NBP; 36415; 72020; 72100; 87086; 88304; 97116-GO; 97161-GP; 97530-GO; C9290; C9399; J0131; J0690; J1170; J1644; J1815; J1885; J2405; J3250; J3370; J3490